=== PATIENT | female | born 1955 | race Caucasian/White ===

== ENCOUNTER 2022-05-10 10:40 | Emergency (ER) | payer OTHER, MEDICARE, BC ==
[2022-05-10] MEDS ORDERED: Lidocaine 1% with EPINEPHrine 1:100,000 50 ML MDV INJECT ONE (12:08)
[2022-05-10] MEDS ORDERED: Lidocaine/Epineph/Tetracaine 3 ML Syringe TOP ONE (12:17)
[2022-05-10] MEDS ORDERED: Bacitracin Oint 1 GM U/D Packet TOP ONE (13:25)
== END 2022-05-10 14:04 | disposition home or self-care (01) ==
LOC: JP.ED 10:40
DX: S91.112A Laceration without foreign body of left great toe without damage to nail, initial encounter (principal); S50.12XA Contusion of left forearm, initial encounter; S80.02XA Contusion of left knee, initial encounter; Z79.82 Long term (current) use of aspirin; Z79.899 Other long term (current) drug therapy; V19.9XXA Pedal cyclist (driver) (passenger) injured in unspecified traffic accident, initial encounter
CPT/HCPCS: 12002; 99282; A9270; 99281